=== PATIENT | male | born 1965 | race Caucasian/White ===

== ENCOUNTER 2018-03-17 10:08 | Emergency (ER) | payer OTHER ==
[2018-03-17 10:24] VITALS: BP 138/85
--- NOTE | 2018-03-17 10:31 | UC ---
Lower Extremity/Ankle HPI - HPI Summary HPI Summary: 4 days ago fell off ladder. is a management supervisor. unable to bear weight for one day. felt better and walked around for 2 hrs. then pain returned and unable to bear weight again. - History of Current Complaint Chief Complaint: UCLowerExtremity Stated Complaint: FOOT INJURY Time Seen by Provider: 03/17/18 10:15 Hx Obtained From: Patient Onset/Duration: Sudden Onset Severity Initially: Mild Severity Currently: None Pain Intensity: 10 Pain Scale Used: 0-10 Numeric Aggravating Factor(s): Standing, Ambulation Alleviating Factor(s): Rest, Elevation, OTC Meds Related History: Occupational Injury - Risk Factors Gout Risk Factors: Negative DVT Risk Factors: Negative Septic Arthritis Risk Factor: Negative - Allergies/Home Medications Allergies/Adverse Reactions: Allergies Allergy/AdvReac Type Severity Reaction Status Date / Time No Known Allergies Allergy Verified 03/17/18 10:24 Home Medications: Home Medications traZODone TAB* [Desyrel TAB*] 50 mg PO BEDTIME PRN 03/17/18 [History Confirmed 03/17/18] PMH/Surg Hx/FS Hx/Imm Hx Previously Healthy: Yes - Surgical History Surgical History: Yes Surgery Procedure, Year, and Place: t/a - Social History Alcohol Use: Occasionally Substance Use Type: None Smoking Status (MU): Never Smoked Tobacco Review of Systems All Other Systems Reviewed And Are Negative: Yes Skin: Positive: Negative Respiratory: Positive: Negative Cardiovascular: Positive: Negative Neurovascular: Positive: Negative Musculoskeletal: Positive: Decreased ROM, Edema Physical Exam Triage Information Reviewed: Yes Appearance: Well-Appearing Vital Signs: Initial Vital Signs Temp 98 F 03/17/18 10:16 Pulse 75 03/17/18 10:16 Resp 16 03/17/18 10:16 BP 138/85 03/17/18 10:16 Pulse Ox 100 03/17/18 10:16 Vital Signs Reviewed: Yes Respiratory Exam: Normal Cardiovascular Exam: Normal Musculoskeletal: Positive: Other: - R knee and R ankle unremarkable. Neg [place] 's. +severe heel tenderness w/ minimal swelling. no bruising noted in R lower extremity. Skin Exam: Normal - R toenails unremarkable, no bruising. Diagnostics - Radiology No standard instances Radiology Interpretation Completed By: Radiologist Summary of Radiographic Findings: Attending Doctor: Naman Henderson ([id number]) . Title I Teacher: Lloyd Farooq ([id number]). Stove Polisher: CATRACHITA ( CATRACHITA). Report Date: 03/17/2018 10:29:00. Report Status: Final. Begin of Report Content . Patient Name: KEL MIRANDA Medical Record#: [id number]. Ordering Physician: Aline CLARKE Acct.#: [id number]. : 1965 Age: 52 Sex: M Location : [facility]. Exam Date: 03/17/18 1029 ADM Status: REG ER. Order Information: FOOT RIGHT 3+ VWS. Accession Number: [id number]. CPT: 56132. Indication: RIGHT heel pain post fall/injury on Wednesday. Comparison: No relevant prior exams available on the [facility] for comparison. Technique: AP, lateral, and oblique views RIGHT foot. Report: Negative for acute fracture or articular malalignment. Healed fracture at the. fifth proximal phalanx. Os peroneum accessory ossicle. 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 Unremarkable soft tissue contours. IMPRESSION: #. No radiographic evidence for calcaneal fracture or acute other traumatic injury. _ . <Electronically signed by Lloyd Farooq MD in OV> 03/17/18 105. Dictated By: Lloyd Farooq MD. Dictated Date/Time: 03/17/181058. Transcribed Date/Time: 1056. Copy to: CC:Gallito Richardson DO; Aline CLARKE; Naman Henderson MD. [facility]. [address] [place] [address]. ph ([phone]) ph ([phone]) ([phone]). End of Report Content ======= Lower Extremity Course/Dx - Course Course Of Treatment: R HEEL CONTUSION after falling off ladder. XRAY unremarkable and advised to take nsaids, rest, non weight bearing activities. - Differential Dx/Diagnosis Differential Diagnosis/HQI/PQRI: Arthritis, Contusion, Dislocation, Sprain, Strain, Other Provider Diagnoses: R heel contusion Discharge - Sign-Out/Discharge Documenting (check all that apply): Patient Departure All imaging exams completed and their final reports reviewed: Yes - Discharge Plan Condition: Good Disposition: HOME Prescriptions: Ibuprofen [Ibu] 600 mg PO TID #42 tablet Patient Education Materials: Foot Contusion (ED) Referrals: Gallito Richardson DO [Primary Care Provider] - - Billing Disposition and Condition Condition: GOOD Disposition: Home
== END 2018-03-17 11:32 | disposition home or self-care (01) ==
LOC: UCEAST 10:08
DX: S90.31XA Contusion of right foot, initial encounter (principal); W11.XXXA Fall on and from ladder, initial encounter; Y92.9 Unspecified place or not applicable
CPT/HCPCS: 99213; G0463